=== PATIENT | female | born 1990 | race Caucasian/White ===

== ENCOUNTER 2024-01-23 20:24 | Emergency (ER) | payer MEDICAID ==
[2024-01-23 20:44] VITALS: BP 92/66; O2SAT 98
[2024-01-23] MEDS: IBUPROFEN 600 MG TABLET PO STA (22:06)
[2024-01-23] MEDS: PROPARACAINE 0.5% OPHTH DROPS 15 ML RIGHTEYE STA (22:06)
--- NOTE | 2024-01-23 22:17 | ED Physician Documentation ---
PD HPI OPHTHO - Stated complaint Stated Complaint: R EYE PX - Chief complaint Chief Complaint: Heent - History obtained from History obtained from: Patient - Treatment prior to arrival Treatment prior to arrival: 33yF p/w R eye irritation after daughter scratched it today. denies vision loss or other injury PD PAST MEDICAL HISTORY - Past Medical History Past Medical History: No Cardiovascular: None Respiratory: None Neuro: None Endocrine/Autoimmune: None GI: None [employer]: None : None HEENT: None Psych: None Musculoskeletal: None Derm: None - Past Surgical History Past Surgical History: Yes Ortho: Arthroscopic surgery - Present Medications Home Medications: Ambulatory Orders Medication Instructions Recorded Confirmed Ofloxacin 0.3% Ophth Drops 2 drops OPTH Q4H 7 Days #5 ml 01/23/24 [Ocuflox 0.3% Ophth Drops] - Allergies Allergies/Adverse Reactions: Allergies Allergy/AdvReac Type Severity Reaction Status Date / Time No Known Drug Allergies Allergy Verified 01/23/24 20:38 - Social History Does the pt smoke?: Yes Smoking Status: Current every day smoker Does the pt drink ETOH?: No Does the pt have substance abuse?: Yes - Immunizations Immunizations are current?: No Immunizations: TDAP >10years/unknown - POLST Patient has POLST: No PD ED PE NORMAL - Vitals Vital signs reviewed: Yes - General General: Alert and oriented X 3, No acute distress, Well developed/nourished - HEENT HEENT: Atraumatic, PERRL, EOMI, Other (R eye irritation and conjunctival injection with tearing. fluorescein exam reveals 1mm corneal abrasion at 9 o clock position in mid eye. ) Results - Vitals Vitals: Vital Signs - 24 hr 01/23/24 20:33 Temperature 36.8 C Heart Rate 91 Respiratory 15 Rate Blood Pressure 92/66 O2 Saturation 98 Oxygen O2 Source Room air PD Medical Decision Making - ED course ED course: 33yF p/w corneal abrasion. proparacaine applied with relief and antibiotic drops sent to pharmacy. return precautions given. plan to f/u ophtho outpatient. Departure - Departure Disposition: 01 Home, Self Care Clinical Impression: Corneal abrasion Condition: Stable Instructions: ED Eye Injury Corneal Abrasion Follow-Up: Brant Florez MD [Provider Admit Priv/Credential] - Prescriptions: Ofloxacin 0.3% Ophth Drops [Ocuflox 0.3% Ophth Drops] 2 drops OPTH Q4H 7 Days #5 ml Comments: You were seen in the emergency department for Scratch to the eye (corneal abrasion. Antibiotic eyedrops were sent to [facility] in [place]. You can take this for 7 days and or until the bottle runs out. Please follow-up with ophthalmology as needed and return to the emergency department if you have any new or worsening symptoms or other concerns.
== END 2024-01-23 22:22 | disposition home or self-care (01) ==
LOC: ED 20:24
DX: S05.01XA Injury of conjunctiva and corneal abrasion without foreign body, right eye, initial encounter (principal); W50.0XXA Accidental hit or strike by another person, initial encounter; F17.200 Nicotine dependence, unspecified, uncomplicated
CPT/HCPCS: 99282; 99283; A9270; J3490